=== PATIENT | female | born 1990 | race American Indian/Alaskan Native ===

== ENCOUNTER 2018-10-20 08:02 | Emergency (ER) | payer OTHER ==
[2018-10-20 08:06] VITALS: BP 114/75
[2018-10-20] MEDS ORDERED: CARAFATE PO ONE (08:28)
--- NOTE | 2018-10-20 08:31 | Emergency Department Report ---
ED Abdominal Pain HPI - General Chief Complaint: Abdominal Pain Stated Complaint: FEVER/9WKS PREG Time Seen by Provider: 10/20/18 08:24 Source: patient Mode of arrival: Ambulatory Limitations: No Limitations - History of Present Illness Initial Comments: Patient endorses being 9 weeks , normal intrauterine confirmed by [facility], which is complaining of upper abdominal pain and low-grade fever since last night. Patient denies vomiting or diarrhea. Denies any urinary complaints. Denies any vaginal bleeding or discharge. Denies any lower abdominal pain. MD Complaint: abdominal pain -: Gradual, days(s) (1) Location: epigastric Radiation: none Migration to: no migration Severity: moderate Quality: cramping Consistency: constant Improves With: nothing Worsens With: nothing Associated Symptoms: denies other symptoms - Related Data Previous Rx's Medication Instructions Recorded Last Taken Type Dicyclomine [Bentyl] 10 mg PO QID #30 capsule 10/20/18 Unknown Rx Omeprazole 40 mg PO DAILY #30 capsule. 10/20/18 Unknown Rx Allergies Allergy/AdvReac Type Severity Reaction Status Date / Time No Known Allergies Allergy Unverified 10/20/18 08:06 ED Review of Systems ROS: Stated complaint: FEVER/9WKS PREG Other details as noted in HPI Comment: All other systems reviewed and negative Gastrointestinal: as per HPI ED Past Medical Hx - Past Medical History Previous Medical History?: No - Surgical History Past Surgical History?: No - Social History Smoking Status: Never Smoker Substance Use Type: None - Medications Home Medications: Home Medications Medication Instructions Recorded Confirmed Last Taken Type Dicyclomine [Bentyl] 10 mg PO QID #30 capsule 10/20/18 Unknown Rx Omeprazole 40 mg PO DAILY #30 capsule. 10/20/18 Unknown Rx ED Physical Exam - General Limitations: No Limitations General appearance: alert, in no apparent distress - Head Head exam: Present: atraumatic, normocephalic - Eye Eye exam: Present: normal appearance - ENT ENT exam: Present: mucous membranes moist - Neck Neck exam: Present: normal inspection - Respiratory Respiratory exam: Present: normal lung sounds bilaterally. Absent: respiratory distress - Cardiovascular Cardiovascular Exam: Present: regular rate, normal rhythm. Absent: systolic murmur, diastolic murmur, rubs, gallop - GI/Abdominal GI/Abdominal exam: Present: soft, tenderness (mild epigastric ), normal bowel sounds. Absent: guarding, rebound, rigid - Extremities Exam Extremities exam: Present: normal inspection - Back Exam Back exam: Present: normal inspection - Neurological Exam Neurological exam: Present: alert, oriented X3 - Psychiatric Psychiatric exam: Present: normal affect, normal mood - Skin Skin exam: Present: warm, dry, intact, normal color. Absent: rash ED Course Vital Signs 10/20/18 08:05 Temperature 99.0 F Pulse Rate 103 H Respiratory 18 Rate Blood Pressure 114/75 O2 Sat by Pulse 98 Oximetry - Procedure Description Procedures done: POCUS transabdominal shows a single viable first trimester intrauterine without complication, FHT present at about 160 beats per minute. ED Medical Decision Making - Lab Data Result diagrams: 10/20/18 09:17 10/20/18 09:17 - Medical Decision Making Patient presented with epigastric discomfort since yesterday with low-grade fever. No fever noted here. On exam there is mild epigastric tenderness only. No right upper quadrant or right lower quadrant tenderness. Bedside ultrasound shows normal intrauterine . Labs obtained show normal liver function, lipase, CBC. This is likely gastritis, will treat and have her follow-up with [facility]. Return precautions given. - Differential Diagnosis gastritis, gastroenteritis, pancreatitis, biliary colic. Critical care attestation.: If time is entered above; I have spent that time in minutes in the direct care of this critically ill patient, excluding procedure time. ED Disposition Clinical Impression: Abdominal pain affecting Disposition: DC-01 TO HOME OR SELFCARE Is pt being admited?: No Condition: Good Instructions: Abdominal Pain (ED) Prescriptions: Dicyclomine [Bentyl] 10 mg PO QID #30 capsule Omeprazole 40 mg PO DAILY #30 capsule. Referrals: DAVID BARNHARTBEAUFORT MD AVIVA [Primary Care Provider] - 3-5 Days Forms: Work/School Release Form(ED) Time of Disposition: 11:04
[2018-10-20 10:05] LABS: Basophils % (Auto) 0.6 % (0.0-1.8); Eosinophils # (Auto) 0.1 K/mm3 (0.0-0.4); Eosinophils % (Auto) 1.9 % (0.0-4.3); Hematocrit 41.5 % (30.3-42.9); Hemoglobin 14.1 gm/dl (10.1-14.3); Lymphocytes # (Auto) 1.3 K/mm3 (1.2-5.4); Lymphocytes % (Auto) 16.7 % (13.4-35.0); Mean Corpuscular HGB Conc 34 % (30-34); Mean Corpuscular Volume 86 fl (79-97); Monocytes # (Auto) 0.8 K/mm3 (0.0-0.8); Monocytes % (Auto) 10.8 % (0.0-7.3); Platelet Count 161 K/mm3 (140-440); Red Blood Count 4.83 M/mm3 (3.65-5.03); Red Cell Distribution Width 13.2 % (13.2-15.2)
[2018-10-20 10:24] LABS: Alanine Aminotransferase 9 units/L (7-56); Albumin 3.8 g/dL (3.9-5); BUN/Creatinine Ratio 12; Blood Urea Nitrogen 7 mg/dL (7-17); Calcium 9.4 mg/dL (8.4-10.2); Hemolysis Index 6
[2018-10-20 10:51] LABS: Bilirubin,Urine NEG (Negative); Blood,Urine LG (Negative); Color,Urine Yellow (Yellow); Mucus,Urine 3+ /HPF; Protein,Urine <15 mg/dL mg/dL (Negative); Urobilinogen,Urine < 2.0 mg/dL (<2.0)
== END 2018-10-20 11:24 | disposition home or self-care (01) ==
LOC: ED 08:02
DX: O99.611 Diseases of the digestive system complicating pregnancy, first trimester (principal); R10.13 Epigastric pain; Z79.899 Other long term (current) drug therapy; Z3A.09 9 weeks gestation of pregnancy
CPT/HCPCS: 36415; 80053; 81001; 83690; 84702; 85025; 99283

== ENCOUNTER 2019-10-12 11:01 | Emergency (ER) | payer MEDICAID ==
--- NOTE | 2019-10-12 15:22 | Emergency Department Report ---
ED General Adult HPI - General Chief complaint: Allergic Reaction Stated complaint: ALLERGIC REACTION Time Seen by Provider: 10/12/19 14:26 Source: patient Mode of arrival: Ambulatory Limitations: No Limitations - History of Present Illness Initial comments: 29-year-old -[place] female patient without significant past medical history presents with complaints of rash to the scalp and to the upper lip x days. Patient states the scalp is painful and itchy. She does report using a new oil on her hair 1 week ago, however symptoms did not start until 2 days ago. Patient also reports a fever of 103 on Monday and Monday that resolved with Tylenol. She denies any other cold symptoms, shortness of breath, or difficulty swallowing. Patient states the rash has a burning sensation and denies history of cold sores or genital herpes. Severity scale (0 -10): 0 - Related Data Home Medications Medication Instructions Recorded Confirmed Last Taken Vitamin 1 tab PO DAILY 05/06/19 05/06/19 05/04/19 Previous Rx's Medication Instructions Recorded Last Taken Type Mupirocin [Bactroban 2% OINT] 1 applic TP TID 7 Days #1 tube 10/12/19 Unknown Rx Prednisone [predniSONE 5 mg (6-Day 5 mg PO .TAPER #1 tab.ds.pk 10/12/19 Unknown Rx Pack, 21 Tabs)] Valacyclovir HCl [Valacyclovir] 1,000 mg PO BID 7 Days #14 tablet 10/12/19 Unknown Rx Allergies Allergy/AdvReac Type Severity Reaction Status Date / Time peanut Allergy Anaphylaxis Verified 05/05/19 05:05 ED Review of Systems ROS: Stated complaint: ALLERGIC REACTION Other details as noted in HPI Constitutional: denies: chills, fever Eyes: denies: eye pain, vision change ENT: denies: throat pain Respiratory: denies: cough, shortness of breath Cardiovascular: denies: chest pain Gastrointestinal: denies: nausea, vomiting Skin: rash, lesions. denies: change in color ED Past Medical Hx - Past Medical History Previous Medical History?: Yes Hx Hypertension: No Hx Congestive Heart Failure: No Hx Diabetes: No Hx Deep Vein Thrombosis: No Hx Renal Disease: No Hx Sickle Cell Disease: No Hx Seizures: Yes (last seizure at 14 yo no current treatment) Hx Asthma: No Hx COPD: No Hx HIV: No - Surgical History Past Surgical History?: No - Social History Smoking Status: Never Smoker Substance Use Type: None - Medications Home Medications: Home Medications Medication Instructions Recorded Confirmed Last Taken Type Vitamin 1 tab PO DAILY 05/06/19 05/06/19 05/04/19 History Mupirocin [Bactroban 2% OINT] 1 applic TP TID 7 Days #1 tube 10/12/19 Unknown Rx Prednisone [predniSONE 5 mg (6-Day 5 mg PO .TAPER #1 tab.ds.pk 10/12/19 Unknown Rx Pack, 21 Tabs)] Valacyclovir HCl [Valacyclovir] 1,000 mg PO BID 7 Days #14 tablet 10/12/19 Unknown Rx ED Physical Exam - General Limitations: No Limitations General appearance: alert, in no apparent distress, obese - Head Head exam: Present: atraumatic, normocephalic - Eye Eye exam: Present: normal appearance. Absent: scleral icterus - ENT ENT exam: Present: normal orophraynx - Respiratory Respiratory exam: Absent: respiratory distress - Cardiovascular Cardiovascular Exam: Present: regular rate - Neurological Exam Neurological exam: Present: alert, oriented X3, normal gait - Psychiatric Psychiatric exam: Present: normal affect, normal mood - Skin Skin exam: Present: warm, dry, intact, other (Scattered lesions noted throughout the scalp with a mild central ulceration and honey crusted color overlying them. Lesions are tender to palpation. Dry crusted papular round rash noted to right upper lip without any erythema or swelling noted. No active drainage is noted from lip lesion) ED Course Vital Signs 10/12/19 10/12/19 11:11 15:04 Temperature 98.7 F Pulse Rate 112 H Respiratory 15 17 Rate Blood Pressure 132/81 [Right] O2 Sat by Pulse 96 Oximetry ED Medical Decision Making - Medical Decision Making Patient here with complaints of rash to the scalp and right lip. The appearance of the rash appears to be consistent with herpetic type lesion or impetigo. Given patient did have a prodrome of a fever 3 days prior, will treat for a viral skin rash along with impetigo with valacyclovir and mupirocin. Prednisone also given for possible allergic reaction. Recommend follow-up with primary care provider within 3 to 5 days. Strict return precautions were discussed in great detail with patient who verbalized understanding. Her vitals are normal, she is well-appearing, and stable for discharge home. Critical care attestation.: If time is entered above; I have spent that time in minutes in the direct care of this critically ill patient, excluding procedure time. ED Disposition Clinical Impression: Rash and nonspecific skin eruption, Lesion of lip Disposition: TO HOME OR SELFCARE Is pt being admited?: No Condition: Stable Instructions: Viral Exanthem (ED), Impetigo (ED) Prescriptions: Mupirocin [Bactroban 2% OINT] 1 applic TP TID 7 Days #1 tube Prednisone [predniSONE 5 mg (6-Day Pack, 21 Tabs)] 5 mg PO .TAPER #1 tab.ds.pk Valacyclovir HCl [Valacyclovir] 1,000 mg PO BID 7 Days #14 tablet Referrals: PRIMARY CARE, [Primary Care Provider] - 3-5 Days
[2019-10-12 15:48] VITALS: BP 132/81
== END 2019-10-12 15:48 | disposition home or self-care (01) ==
LOC: ED 11:01
DX: K13.0 Diseases of lips (principal); Z86.69 Personal history of other diseases of the nervous system and sense organs; Z79.899 Other long term (current) drug therapy; Z91.010 Allergy to peanuts
CPT/HCPCS: 99282